=== PATIENT | female | born 1960 | race Caucasian/White ===

== ENCOUNTER 2023-12-13 14:58 | Emergency (ER) | payer OTHER ==
[~2023-12-13] VITALS: Ht 172.7 cm; Wt 57.6 kg
[2023-12-13 15:51] LABS: BASOPHILS ABSOLUTE AUTO 0.07 K/mm3 (0.00-0.23); BASOPHILS PERCENT AUTO 1 % (0-2); EOSINOPHILS ABSOLUTE AUTO 0.13 K/mm3 (0.00-0.68); EOSINOPHILS PERCENT AUTO 2 % (0-6); Hematocrit 36.6 % (33.0-51.0); IMMATURE GRAN ABSOLUTE AUTO 0.01 K/mm3 (0.00-0.10); IMMATURE GRAN PERCENT AUTO 0 % (0-1); LYMPHOCYTES ABSOLUTE AUTO 2.46 K/mm3 (0.84-5.20); LYMPHOCYTES PERCENT AUTO 38 % (21-46); MONOCYTES ABSOLUTE AUTO 0.39 K/mm3 (0.16-1.47); MONOCYTES PERCENT AUTO 6 % (4-13); Mean Corpuscular HGB 31.6 pg (26.0-34.0); Mean Corpuscular HGB Conc 32.8 g/dL (31.5-36.5); Mean Corpuscular Volume 96 fL (80-100); Mean Platelet Volume 11.7 fL (9.1-12.4); NEUTROPHILS ABSOLUTE AUTO 3.46 K/mm3 (1.96-9.15); NEUTROPHILS PERCENT AUTO 53 % (41-73); Platelet Count 265 K/mm3 (150-400); RDW Coefficient Variation 12.6 % (11.7-14.2); RDW Standard Deviation 44.9 fL (35.1-46.3); White Blood Cell Count 6.52 K/mm3 (4.00-11.30)
[2023-12-13 16:04] LABS: Albumin, Blood 3.4 g/dL (3.4-5.0); Albumin/Globulin Ratio 1.2 (0.8-1.8); Bilirubin, Total 0.4 mg/dL (0.1-1.0); Bun/Creatinine Ratio 8.3 (12.0-20.0); Calcium, Blood 8.7 mg/dL (8.5-10.1); Creatinine, Blood 0.97 mg/dL (0.40-1.00); Globulin, Blood 2.9 g/dL (2.2-4.0); Potassium, Blood 3.9 mmol/L (3.5-5.5); Total Protein, Blood 6.3 g/dL (6.4-8.2)
[2023-12-13 16:56] LABS: Influenza A, PCR NEGATIVE (NEGATIVE); Influenza B, PCR NEGATIVE (NEGATIVE); Resp Syncytial Virus, PCR NEGATIVE (NEGATIVE); SARS-Cov-2 (COVID-19) PCR, MMC NEGATIVE (NEGATIVE)
[2023-12-13 18:00] VITALS: BP 129/66
[2023-12-14] MEDS ORDERED: BUPR150ER PO (16:55)
[2023-12-14] MEDS ORDERED: MELATONIN5 M1 PO (16:55)
[2023-12-14] MEDS ORDERED: ZIPR40 PO (16:56)
[2023-12-14] MEDS ORDERED: CLON1 PO (16:56)
[2023-12-14] MEDS ORDERED: TOPI100 PO (16:57)
[2023-12-14] MEDS ORDERED: OMEP20ER PO (17:23)
== END 2023-12-13 19:00 | disposition home or self-care (01) ==
LOC: ER 14:58
PROVIDERS: Student in an Organized Health Care Education/Training Program
DX: R07.89 Other chest pain (principal); Z88.0 Allergy status to penicillin; Z88.8 Allergy status to other drugs, medicaments and biological substances; Z11.52 Encounter for screening for COVID-19
CPT/HCPCS: 0241U; 71045; 80053; 83880; 84484; 85025; 93005; 93010

== ENCOUNTER 2023-12-14 11:43 | Observation (INO) | payer OTHER ==
[2023-12-14 13:01] LABS: Albumin, Blood 3.4 g/dL (3.4-5.0); Albumin/Globulin Ratio 1.2 (0.8-1.8); Bilirubin, Total 0.2 mg/dL (0.1-1.0); Bun/Creatinine Ratio 8.8 (12.0-20.0); Calcium, Blood 8.5 mg/dL (8.5-10.1); Creatinine, Blood 0.91 mg/dL (0.40-1.00); Globulin, Blood 2.8 g/dL (2.2-4.0); Magnesium, Blood 2.4 mg/dL (1.6-2.4); Potassium, Blood 3.8 mmol/L (3.5-5.5); Total Protein, Blood 6.2 g/dL (6.4-8.2)
[2023-12-14 13:06] LABS: BASOPHILS ABSOLUTE AUTO 0.06 K/mm3 (0.00-0.23); BASOPHILS PERCENT AUTO 1 % (0-2); EOSINOPHILS ABSOLUTE AUTO 0.13 K/mm3 (0.00-0.68); EOSINOPHILS PERCENT AUTO 2 % (0-6); Hematocrit 37.7 % (33.0-51.0); Hemoglobin 12.1 g/dL (11.5-16.0); IMMATURE GRAN ABSOLUTE AUTO 0.01 K/mm3 (0.00-0.10); IMMATURE GRAN PERCENT AUTO 0 % (0-1); LYMPHOCYTES ABSOLUTE AUTO 2.11 K/mm3 (0.84-5.20); LYMPHOCYTES PERCENT AUTO 38 % (21-46); MONOCYTES ABSOLUTE AUTO 0.45 K/mm3 (0.16-1.47); MONOCYTES PERCENT AUTO 8 % (4-13); Mean Corpuscular HGB 31.3 pg (26.0-34.0); Mean Corpuscular HGB Conc 32.1 g/dL (31.5-36.5); Mean Corpuscular Volume 98 fL (80-100); Mean Platelet Volume 11.4 fL (9.1-12.4); NEUTROPHILS ABSOLUTE AUTO 2.76 K/mm3 (1.96-9.15); NEUTROPHILS PERCENT AUTO 50 % (41-73); Platelet Count 259 K/mm3 (150-400); RDW Coefficient Variation 12.8 % (11.7-14.2); RDW Standard Deviation 45.8 fL (35.1-46.3); Red Blood Cell Count 3.86 M/mm3 (3.80-5.20); White Blood Cell Count 5.52 K/mm3 (4.00-11.30)
[2023-12-14] MEDS ORDERED: Nitroglycerin 1 INCH/GM PKT TOP ONE (13:30)
[2023-12-14] MEDS ORDERED: Acetaminophen 325 MG TABLET PO PRN (14:35)
[2023-12-14] MEDS ORDERED: FLU VACC QS2023-24(6MOS UP)/PF 60 MCG/0.5 ML SYRINGE IM SCH (14:35)
[2023-12-14] MEDS ORDERED: Ondansetron HCl 2 MG / ML 2ML Vial IV PRN (14:35)
[2023-12-14] MEDS ORDERED: LORazepam 2 MG/ML 1ML Injection IV STA (15:05)
[2023-12-14] MEDS ORDERED: MELATONIN5 M1 PO (16:55)
[2023-12-14] MEDS ORDERED: BUPR150ER PO (16:55)
[2023-12-14] MEDS ORDERED: ZIPR40 PO (16:56)
[2023-12-14] MEDS ORDERED: CLON1 PO (16:56)
[2023-12-14] MEDS ORDERED: TOPI100 PO (16:57)
[2023-12-14 17:01] VITALS: BP 119/64
[2023-12-14] MEDS ORDERED: OMEP20ER PO (17:23)
--- NOTE | 2023-12-14 17:42 | NUR ---
LATE ENTRY ER ADMIT [id number]: REPORT RECEIVED FROM CADDIE. RECEIVED PT FROM ER VIA GURNEY, PT PLACED SELF IN BED, MADE COMFORTABLE, ORIENTED TO ROOM & UNIT ROUTINE. PT IS A&O X 4, VSS. IS PLEASANT & COPERATIVE WITH ALL CARE. REPORTS SOME MILD CHEST PRESSURE UPON ARRIVAL TO ROOM. ONCE SETTLED IN BED/ROOM, PT REPORTS PRESSURE SUBSIDED. PLACED ON TELE WHICH SHOWS SR NO ECTOPY, HR 80'S. [employer] IN ROOM TO DRAW 2ND TROPONIN. 1ST TROPONIN RESULTED AT 4. 1ST HALF OF NUC MED STRESS TEST DONE BEFORE PT ADMITTED TO MED FLOOR. IS TO HAVE STRESS PORTION OF STRESS TEST TOMORROW. ADMIT & MED REC COMPLETED.
[2023-12-14 19:17] VITALS: BP 128/72
[2023-12-14] MEDS ORDERED: Heparin Sodium,Porcine 5,000 UNIT/0.5 ML SDV SC SCH (21:00)
[2023-12-14] MEDS ORDERED: ClonazePAM 1 MG Tab PO PRN (21:50)
[2023-12-14] MEDS ORDERED: Melatonin 5 MG Tablet PO SCH (22:00)
[2023-12-14] MEDS ORDERED: Ziprasidone HCL 20 MG Cap PO SCH (22:00)
[2023-12-14] MEDS ORDERED: buPROPion HCL 150 MG TAB.SR.12H PO SCH (22:00)
[2023-12-14] MEDS ORDERED: Topiramate 100 MG Tab PO SCH (22:00)
[2023-12-15 03:35] VITALS: BP 107/55
[2023-12-15] MEDS ORDERED: Omeprazole 20 MG CapCR PO SCH (06:00)
[2023-12-15 06:10] VITALS: BP 119/59
--- NOTE | 2023-12-15 06:39 | NUR ---
SHIFT SUMMARY: PT IS ADMITTED FOR CHEST PAIN AND IS A FULL CODE. IS ALERT AND ABLE TO MAKE NEEDS KNOWN. ADLs HAVE BEEN STAND BY FOR SAFETY. WAS GIVEN PRN APAP X1 FOR HEADACHE. IV TO LEFT HAND IS PATENT WITH DRESSING THAT IS CDI.
[2023-12-15 08:11] VITALS: BP 116/66
[2023-12-15] MEDS ORDERED: Acetaminophen 325 MG TABLET PO ONE (09:10)
[2023-12-15] MEDS ORDERED: SUMAtriptan Succinate 25 MG Tab PO ONE (11:50)
[2023-12-15] MEDS ORDERED: LORazepam 2 MG/ML 1ML Injection IV ONE (13:15)
[2023-12-15] MEDS ORDERED: Regadenoson 0.4 MG/5 ML SYRINGE ONE (13:32)
[2023-12-15] MEDS ORDERED: SUMAtriptan Succinate 25 MG Tab PO PRN (18:00)
--- NOTE | 2023-12-15 18:10 | NUR ---
SHIFT SUMMARY: PATIENT A/OX4, ANXIOUS AT TIMES, PLEASANT AND COOPERATIVE c CARE. PATIENT DENIES CP/PRESSURE, SOB AND DIZZINESS. PATIENT REPORTS HEADACHE 5-07/30, MEDICATED c TYLENOL c NO EFFECT, NOTIFIED DR. BETSY ulloa THIS ISSUE. RECEIVED ORDER OT DOSE IMITREX 25 MG PO AT AROUND NOONISH, c GREAT EFFECT. PATIENT REPORTS "MY HEADACHE IS GONE." PATIENT HAD HER SECOND PART OF STRESS TEST TODAY c RESULT. PATIENT IS INDEPENDENT IN ROOM, USES CALL LIGHT APPROPRIATLEY AND ABLE TO MAKE NEEDS KNOWN. PATIENT RECEIVED SCHEDULED MEDS PER EMAR. VITAL SIGNS REVIEWED. PIV TO L HAND SALINE LOCKED. CALL LIGHT IN RAECH.
[2023-12-15 19:05] VITALS: BP 115/70
[2023-12-16 03:14] VITALS: BP 103/56
--- NOTE | 2023-12-16 03:46 | NUR ---
SHIFT SUMMARY MS WAYNE HAS NOT HAD ANY PAIN OVERNIGHT, NO CHEST PAIN, NO HEADACHE. SHE SAID SHE SLEPT FOR 7 HOURS AND FEELS VERY WELL. TELEMETRY SR/SB - NO CALLS FROM [facility]. UP INDEPENDENTLY TO THE BATHROOM, STEADY GAIT. BED LOW, CALL LIGHT IN REACH.
[2023-12-16 05:19] LABS: CHOL/HDL RATIO 2.7; Cholesterol 193 mg/dL (50-200); HDL Cholesterol 72 mg/dL (>39); LDL/HDL RATIO 1.4; Low Density Lipoprotein Chol 97 mg/dL (0-110); Triglycerides 119 mg/dL (30-160); Very Low Density Lipoprot Chol 23 mg/dL (6-32)
[2023-12-16] MEDS ORDERED: ASPI81CH PO (07:51)
[2023-12-16] MEDS ORDERED: SUMA25 PO (07:52)
[2023-12-16 08:14] VITALS: BP 122/56
[2023-12-16] MEDS ORDERED: Aspirin 81 MG TabEC PO SCH (09:00)
--- NOTE | 2023-12-16 10:09 | NUR ---
SHIFT SUMMARY: NO NEW CHANGES IN PATIENT CONDITION THIS SHIFT. PATIENT A/OX4, PLEASANT AND COOPERATIVE c CARE. PATIENT DENIES HEADACHE, CP/PRESSURE, N/V, DIZZINESS AND GENERALIZED PAIN. PATIENT STILL ON TELE, SB/SR HR IN THE HIGH 50'S TO 70'S BPM. PATIENT RECEIVED SCHEDULED MEDS PER EMAR. VITAL SIGNS REVIEWED. PIV TO L JAYLEN DC'D. PATIENT DISCHARGE HOME. DISCHARGE INSTRUCTIONS PACKET GIVEN TO PATIENT. EDUCATE PATIENT REGARDING ADMITTING DX'S OF CP, S/S, TX, TAKE MEDS PRESCRIBED AND TO FOLLOW UP c PCP. PATIENT VERBALIZED UNDERSTANDING AND NO FURTHER QUESTIONS. RX WAS FAXED TO PATIENT PREFERRED PHARMACY ([facility]). ALL PATIENT PERSONAL BELONGINGS WERE SENT HOME c THE PATIENT. PATIENT LEFT THE ROOM AT 0850'S AND WAS TRANSPORTED VIA WHEELCHAIR BY [employer] RU[employer]ER STAFF, JESU GHOSH TO PATIENT ENTRANCE.
== END 2023-12-16 08:51 | disposition home or self-care (01) ==
LOC: ER 11:43 → MEDS 11:44 → ENPENDDIS 12-16 08:36 → MEDS 12-16 08:51
PROVIDERS: Student in an Organized Health Care Education/Training Program; ADMIT Internal Medicine
DX: R07.9 Chest pain, unspecified (principal); F31.9 Bipolar disorder, unspecified; F41.9 Anxiety disorder, unspecified; J44.9 Chronic obstructive pulmonary disease, unspecified; Z88.0 Allergy status to penicillin; Z88.8 Allergy status to other drugs, medicaments and biological substances; R06.02 Shortness of breath; Z87.891 Personal history of nicotine dependence; R94.39 Abnormal result of other cardiovascular function study
CPT/HCPCS: 36415; 78452; 80053; 80061; 82947; 83735; 84484; 85025; 93005; 93010; 93017; 96372; 96374; 96375; 96376; 99285-25; A9270; A9500; G0378; J1644; J2060; J2405; J2785

== ENCOUNTER 2024-09-14 04:23 | Emergency (ER) | payer OTHER ==
[~2024-09-14] VITALS: Ht 172.7 cm; Wt 61.2 kg
[~2024-09-14 04:23] MED LIST: ASPI81CH PO; BUPR150ER PO; CLON1 PO; Isosorbide Mono30 MG PO; MELATONIN5 M1 PO; METO25ER PO; NITR.4SL SL; OMEP20ER PO; SUMA25 PO; TOPI100 PO; ZIPR40 PO
[2024-09-14 04:48] LABS: BASOPHILS ABSOLUTE AUTO 0.07 K/mm3 (0.00-0.23); BASOPHILS PERCENT AUTO 1 % (0-2); EOSINOPHILS ABSOLUTE AUTO 0.22 K/mm3 (0.00-0.68); EOSINOPHILS PERCENT AUTO 4 % (0-6); Hematocrit 36.7 % (33.0-51.0); Hemoglobin 12.2 g/dL (11.5-16.0); IMMATURE GRAN ABSOLUTE AUTO 0.02 K/mm3 (0.00-0.10); IMMATURE GRAN PERCENT AUTO 0 % (0-1); LYMPHOCYTES PERCENT AUTO 39 % (21-46); MONOCYTES PERCENT AUTO 9 % (4-13); Mean Corpuscular HGB 32.1 pg (26.0-34.0); Mean Corpuscular HGB Conc 33.2 g/dL (31.5-36.5); Mean Corpuscular Volume 97 fL (80-100); Mean Platelet Volume 10.7 fL (9.1-12.4); NEUTROPHILS ABSOLUTE AUTO 2.73 K/mm3 (1.96-9.15); NEUTROPHILS PERCENT AUTO 47 % (41-73); Platelet Count 246 K/mm3 (150-400); RDW Coefficient Variation 13.2 % (11.7-14.2); RDW Standard Deviation 47.3 fL (35.1-46.3); White Blood Cell Count 5.84 K/mm3 (4.00-11.30)
[2024-09-14 05:12] LABS: Albumin, Blood 3.5 g/dL (3.4-5.0); Albumin/Globulin Ratio 1.3 (0.8-1.8); Bilirubin, Total 0.5 mg/dL (0.1-1.0); Bun/Creatinine Ratio 10.5 (12.0-20.0); Calcium, Blood 9.2 mg/dL (8.5-10.1); Creatinine, Blood 0.95 mg/dL (0.40-1.00); Globulin, Blood 2.6 g/dL (2.2-4.0); Magnesium, Blood 2.3 mg/dL (1.6-2.4); Potassium, Blood 3.8 mmol/L (3.5-5.5); Total Protein, Blood 6.1 g/dL (6.4-8.2)
[2024-09-14 05:53] LABS: Source, Urine Clean Catch
[2024-09-14] MEDS ORDERED: Mag Hydrox/AL Hydrox/Simeth 30 ML UDC PO ONE (06:15)
[2024-09-14] MEDS ORDERED: Famotidine 10 MG/ML 2ML Vial IV ONE (06:15)
[2024-09-14] MEDS ORDERED: Acetaminophen 500 MG Tab PO ONE (06:15)
[2024-09-14 06:23] LABS: Appearance, Urine Clear (Clear); Bilirubin, Urine Neg (Neg); Blood, Urine 1+ (Neg); Color, Urine Yellow (P-Yellow); Glucose Qualitative, Urine Neg (Neg); Ketones, Urine Neg (Neg); Leukocyte Esterase, Urine Neg (Neg); Nitrite, Urine Neg (Neg); Protein, Urine Neg (Neg); Urobilinogen, Urine NORM (Normal); pH, Urine 6.5 (5.0-8.0)
[2024-09-14 06:46] LABS: Bacteria Mod /hpf; Mucus Light (0-Heavy); Red Blood Cells, Urine 0-2 /hpf (0-2); Squamous Epithelial Cells Many /hpf (Few); White Blood Cells, Urine 0-2 /hpf (0-5)
[2024-09-14] MEDS ORDERED: Ondansetron HCl 2 MG / ML 2ML Vial IV ONE (07:00)
[2024-09-14] MEDS ORDERED: Ketorolac Tromethamine 30mg Vial IV ONE (07:00)
[2024-09-14 07:35] VITALS: BP 152/89
[2024-09-14] MEDS ORDERED: ONDA4ODT MM (07:56)
== END 2024-09-14 08:12 | disposition home or self-care (01) ==
LOC: ER 04:23
PROVIDERS: Emergency Medicine
DX: B34.9 Viral infection, unspecified (principal); R07.9 Chest pain, unspecified; Z86.018 Personal history of other benign neoplasm; Z79.899 Other long term (current) drug therapy; Z79.82 Long term (current) use of aspirin; Z88.5 Allergy status to narcotic agent; Z88.8 Allergy status to other drugs, medicaments and biological substances; Z88.0 Allergy status to penicillin
CPT/HCPCS: 51798; 71045; 76705; 80053; 81001; 83690; 83735; 83880; 84484; 85025; 93005; 93010; 99285-25

== ENCOUNTER 2024-09-16 15:41 | Emergency (ER) | payer OTHER ==
[~2024-09-16] VITALS: Ht 172.7 cm; Wt 61.2 kg
[~2024-09-16 15:41] MED LIST changes: +ONDA4ODT MM
[2024-09-16 16:08] VITALS: BP 126/82
[2024-09-16 17:43] LABS: BASOPHILS PERCENT AUTO 1 % (0-2); EOSINOPHILS ABSOLUTE AUTO 0.14 K/mm3 (0.00-0.68); EOSINOPHILS PERCENT AUTO 2 % (0-6); Hematocrit 40.6 % (33.0-51.0); Hemoglobin 13.6 g/dL (11.5-16.0); IMMATURE GRAN ABSOLUTE AUTO 0.02 K/mm3 (0.00-0.10); IMMATURE GRAN PERCENT AUTO 0 % (0-1); LYMPHOCYTES ABSOLUTE AUTO 2.87 K/mm3 (0.84-5.20); LYMPHOCYTES PERCENT AUTO 32 % (21-46); MONOCYTES ABSOLUTE AUTO 0.77 K/mm3 (0.16-1.47); MONOCYTES PERCENT AUTO 9 % (4-13); Mean Corpuscular HGB 31.9 pg (26.0-34.0); Mean Corpuscular HGB Conc 33.5 g/dL (31.5-36.5); Mean Corpuscular Volume 95 fL (80-100); Mean Platelet Volume 11.2 fL (9.1-12.4); NEUTROPHILS ABSOLUTE AUTO 5.02 K/mm3 (1.96-9.15); NEUTROPHILS PERCENT AUTO 56 % (41-73); Platelet Count 306 K/mm3 (150-400); RDW Coefficient Variation 12.9 % (11.7-14.2); RDW Standard Deviation 45.2 fL (35.1-46.3); Red Blood Cell Count 4.26 M/mm3 (3.80-5.20); White Blood Cell Count 8.92 K/mm3 (4.00-11.30)
[2024-09-16 17:58] LABS: Albumin, Blood 4.1 g/dL (3.4-5.0); Albumin/Globulin Ratio 1.3 (0.8-1.8); Bilirubin, Total 0.5 mg/dL (0.1-1.0); Bun/Creatinine Ratio 12.3 (12.0-20.0); Calcium, Blood 9.3 mg/dL (8.5-10.1); Creatinine, Blood 0.89 mg/dL (0.40-1.00); Globulin, Blood 3.1 g/dL (2.2-4.0); Potassium, Blood 3.6 mmol/L (3.5-5.5); Total Protein, Blood 7.2 g/dL (6.4-8.2)
[2024-09-16] MEDS ORDERED: ClonazePAM 1 MG Tab PO ONE (18:50)
== END 2024-09-16 19:04 | disposition home or self-care (01) ==
LOC: ER 15:41
PROVIDERS: Emergency Medicine
DX: R07.89 Other chest pain (principal); F41.9 Anxiety disorder, unspecified; I25.10 Atherosclerotic heart disease of native coronary artery without angina pectoris; Z88.5 Allergy status to narcotic agent; Z88.0 Allergy status to penicillin; Z88.8 Allergy status to other drugs, medicaments and biological substances; Z79.82 Long term (current) use of aspirin; Z79.899 Other long term (current) drug therapy
CPT/HCPCS: 71045; 80053; 83880; 84484; 85025; 93005; 93010; 99285-25; A9270

== ENCOUNTER 2024-09-18 15:58 | Emergency (ER) | payer OTHER ==
[~2024-09-18] VITALS: Ht 172.7 cm; Wt 61.2 kg
[2024-09-18 16:34] LABS: BASOPHILS ABSOLUTE AUTO 0.08 K/mm3 (0.00-0.23); BASOPHILS PERCENT AUTO 1 % (0-2); EOSINOPHILS ABSOLUTE AUTO 0.12 K/mm3 (0.00-0.68); EOSINOPHILS PERCENT AUTO 2 % (0-6); Hematocrit 37.5 % (33.0-51.0); Hemoglobin 12.5 g/dL (11.5-16.0); IMMATURE GRAN ABSOLUTE AUTO 0.01 K/mm3 (0.00-0.10); IMMATURE GRAN PERCENT AUTO 0 % (0-1); LYMPHOCYTES PERCENT AUTO 38 % (21-46); MONOCYTES ABSOLUTE AUTO 0.53 K/mm3 (0.16-1.47); MONOCYTES PERCENT AUTO 7 % (4-13); Mean Corpuscular HGB 31.8 pg (26.0-34.0); Mean Corpuscular HGB Conc 33.3 g/dL (31.5-36.5); Mean Corpuscular Volume 95 fL (80-100); NEUTROPHILS ABSOLUTE AUTO 3.85 K/mm3 (1.96-9.15); NEUTROPHILS PERCENT AUTO 52 % (41-73); Platelet Count 284 K/mm3 (150-400); RDW Coefficient Variation 12.8 % (11.7-14.2); RDW Standard Deviation 45.1 fL (35.1-46.3); Red Blood Cell Count 3.93 M/mm3 (3.80-5.20); White Blood Cell Count 7.39 K/mm3 (4.00-11.30)
[2024-09-18 17:00] LABS: Albumin, Blood 3.8 g/dL (3.4-5.0); Albumin/Globulin Ratio 1.3 (0.8-1.8); Bilirubin, Total 0.4 mg/dL (0.1-1.0); Bun/Creatinine Ratio 15.2 (12.0-20.0); Calcium, Blood 9.1 mg/dL (8.5-10.1); Creatinine, Blood 0.92 mg/dL (0.40-1.00); Potassium, Blood 3.4 mmol/L (3.5-5.5); Total Protein, Blood 6.8 g/dL (6.4-8.2)
[2024-09-18 22:15] VITALS: BP 114/63
== END 2024-09-18 23:05 | disposition home or self-care (01) ==
LOC: ER 15:58
PROVIDERS: Physician Assistant
DX: R07.9 Chest pain, unspecified (principal); F41.9 Anxiety disorder, unspecified; I25.10 Atherosclerotic heart disease of native coronary artery without angina pectoris; F31.9 Bipolar disorder, unspecified; Z88.5 Allergy status to narcotic agent; Z88.0 Allergy status to penicillin; Z88.8 Allergy status to other drugs, medicaments and biological substances; Z79.82 Long term (current) use of aspirin; Z79.899 Other long term (current) drug therapy; Z95.5 Presence of coronary angioplasty implant and graft
CPT/HCPCS: 71046; 80053; 84484; 85025; 93005; 93010; 99285-25